=== PATIENT | male | born 2000 ===

== ENCOUNTER → 2023-06-03 15:54 | Outpatient (CLI) | payer BC, SELFPAY ==
--- NOTE | ~2023-06-03 | US_ITS ---
EXAMINATION: US thyroid DATE: 06/03/2023 16:14 INDICATION: Thyroid enlargement. TECHNIQUE: Multiple ultrasound images of the thyroid were obtained. COMPARISON: None. FINDINGS: The right thyroid lobe measures 5.5 x 2.5 x 2.4 cm. The left thyroid lobe measures 5.8 x 2.8 x 2.4 c m. The thyroid is diffusely heterogeneous and hypoechoic. Vascularity is normal. In the right thyroi d lobe, there is a 9 mm solid, hypoechoic, taller than wide nodule with ill-defined margin without ec hogenic foci (TI-RADS TR5). In the left thyroid lobe, there is a 13 mm solid, hyperechoic, wider than tall nodule with irregular margin without echogenic foci (TR4). IMPRESSION: 1. Thyroid nodules. Thyroid ultrasound is recommended in one year. 2. Heterogeneous thyroid, likely chronic lymphocytic (Natan) thyroiditis. Reviewed, dictated and finalized at location A.
== END ==
PROVIDERS: PCP Family Medicine; Visit Provider Family Medicine
DX: E03.9 Hypothyroidism, unspecified (principal); E04.2 Nontoxic multinodular goiter
CPT/HCPCS: 76536